=== PATIENT | female | born 1950 | race Caucasian/White ===

== ENCOUNTER 2016-10-09 08:35 | Outpatient (CLI) ==
[2016-10-09 13:16] LABS: ALBUMIN/GLOBULIN RATIO 1.03; ANION GAP 17.6; BILIRUBIN,TOTAL 0.49 mg/dL (0.00-1.20); BUN/CREATININE RATIO 11.53; CHOL/HDL RATIO 3.2 (4.5-5.5); CREATININE 0.78 mg/dL (0.60-1.30); POTASSIUM 4.6 mmol/L (3.5-5.10); TOTAL PROTEIN 7.9 g/dL (5.8-8.1)
[2016-10-09 14:15] LABS: BASOPHILS # (AUTO) 0.1 K/uL (0-0.2); BASOPHILS % (AUTO) 0.8 % (0.0-3.0); EOSINOPHILS # (AUTO) 0.2 K/ul (0.0-0.7); EOSINOPHILS % (AUTO) 3.7 % (0.0-7.0); HEMATOCRIT 41.5 % (37.0-47.0); HEMOGLOBIN 13.9 g/dl (12.0-16.0); IMMATURE GRANULOCYTE % (AUTO) 0.2 % (0.0-5.0); LYMPHOCYTES # (AUTO) 1.3 K/uL (0.60-3.4); LYMPHOCYTES % (AUTO) 21.5 (10.0-50.0); MEAN CORPUSCULAR HEMOGLOBIN 29.3 pg (27.0-31.0); MEAN CORPUSCULAR HGB CONC 33.5 (31.8-35.4); MEAN CORPUSCULAR VOLUME 87.6 fl (81.0-99.0); MONOCYTES # (AUTO) 0.5 K/uL (0.4-2.0); NEUTROPHILS # (AUTO) 4.1 K/ul (2.0-6.9); NEUTROPHILS % (AUTO) 65.8; PLATELET COUNT 307 10^3/uL (140-440); RED BLOOD COUNT 4.74 10^6/ul (4.20-5.40); WHITE BLOOD COUNT 6.24 K/ul (4.6-10.2)
== END 2016-10-09 08:36 | disposition home or self-care (01) ==
LOC: LAB 08:35
PROVIDERS: ATTEND Nurse Practitioner Family
DX: E11.9 Type 2 diabetes mellitus without complications (principal); I10 Essential (primary) hypertension; E03.9 Hypothyroidism, unspecified; E78.5 Hyperlipidemia, unspecified
CPT/HCPCS: 36415; 80053; 80061; 83036; 84443; 85025

== ENCOUNTER 2016-10-23 08:55 | Outpatient (CLI) | END 2016-10-23 08:56 | disposition home or self-care (01) | LOC: CAR 08:55 | PROVIDERS: ATTEND Nurse Practitioner Family | DX: R00.2 Palpitations (principal) | CPT/HCPCS: 93005; 93010 ==

== ENCOUNTER 2016-12-05 06:20 | Outpatient (CLI) ==
--- NOTE | 2016-12-06 09:45 | ECHO2D ---
Date of Exam: 12/05/16 Ordering Physician: RHC-Izabela ROLLE Reason for Echo: ABNORMAL EKG, SOB, PALPITATIONS M-Mode Normal Adult Results LV Dimensions Normal Adult Results AoV Opening excursions >1.6 >1.6 LVEDD-base- 3.5-5.8 4.4 Ao root dimensions 2.0-3.7 3.1 LVESD-base- 3.1-4.6 L. Atrium dimensions 1.9-3.8 3.5 Post. Wall thickness 0.8-1.1 1.2 IV septum (thickness) 0.7-1.2 1.2 Post. Wall excursion 0.72-1.3 NORMAL Septal motion NORMAL Systolic motion R. Ventricular cavity 1.5-2.0 NORMAL LVEF 60% 54% Paradoxical septal wall motion NORMAL 2-D : 2-D M Mode Echocardiogram was performed using apical four chamber and left parasternal long and short axis views. Mitral, tricuspid and aortic valves appear to be normal. Contractility of the left ventricle seems to be normal, so is the cavity size. Left atrial cavity size and aortic root appear to be normal. There is no pericardial effusion. There is no thrombus noted in the left ventricular or left aortic cavity. No mitral valve prolapse noted. M-MODE: MV: NORMAL AV: NORMAL TV: NORMAL PV: CHAMBER SIZE: NORMAL WALL MOTION: NORMAL PERICARDIUM: NORMAL INTERPRETATION: 1. LEFT VENTRICULAR HYPERTROPHY 2. NORMAL VALVES 3. NORMAL LEFT VENTRICULAR CONTRACTILITY MTDD
== END 2016-12-05 06:21 | disposition home or self-care (01) ==
LOC: CAR 06:20
PROVIDERS: ATTEND Internal Medicine
DX: R06.02 Shortness of breath (principal); R00.2 Palpitations; R94.31 Abnormal electrocardiogram [ECG] [EKG]

== ENCOUNTER 2016-12-06 06:27 | Outpatient (CLI) ==
[2016-12-06] MEDS ORDERED: DOBUTAMINE 250 ML IV ONE (07:05)
[2016-12-06] MEDS ORDERED: ATROPINE SULFATE PFS ONE (07:05)
--- NOTE | 2016-12-07 09:13 | ECHOSTRESS ---
Date of Exam: 12/06/16 [facility] Reason for Echo: PALPITATIONS, ABNORMAL EKG, SOB, DOBUTAMINE STRESS TEST--NO ISCHEMIA M-Mode Normal Adult Results LV Dimensions Normal Adult Results AoV Opening excursions >1.6 LVEDD-base- 3.5-5.8 Ao root dimensions 2.0-3.7 LVESD-base- 3.1-4.6 L. Atrium dimensions 1.9-3.8 Post. Wall thickness 0.8-1.1 IV septum (thickness) 0.7-1.2 Post. Wall excursion 0.72-1.3 Septal motion Systolic motion R. Ventricular cavity 1.5-2.0 LVEF 60% Paradoxical septal wall motion 2-D: NORMAL LEFT VENTRICULAR CONTRACTILITY--RESTING AND WITH DOBUTAMINE INFUSION M-MODE: MV: AV: TV: PV: CHAMBER SIZE: WALL MOTION: NORMAL LEFT VENTRICULAR CONTRACTILITY--RESTING AND WITH DOBUTAMINE INFUSION PERICARDIUM: INTERPRETATION: 1. NORMAL LEFT VENTRICULAR CONTRACTILITY--RESTING AND WITH DOBUTAMINE INFUSION MTDD
--- NOTE | 2016-12-07 09:29 | DOBSTECHO ---
Ordering Physician: MOOSE BONILLA Date of Test: 12/06/16 Reason for Examination: PALPITATIONS, ABNORMAL EKG, SOB Current Medications: DOXEPIN, LEVOTHYROXINE, PRAVASTATIN, LISINOPRIL, HTCZ, CLONIDINE, METOPROLOL Height: 70" Weight: 181 LBS Target Heart Rate: 131/155 ST Segment Stage Time HR BPM BP mmhg Rhythm +/- Up Down Comments/Symptoms Control Sitting 65 122/60 SR X NONE Dobutamine 250mg/D5W 5cmg/KG/mn 10cmg/KG/mn 3" 75 140/82 SR X NONE 15cmg/KG/mn 2" 75 138/90 SR X NONE 20cmg/KG/mn 2" 76 140/90 SR X NONE 25cmg/KG/mn 2" 82 SR X NONE 30cmg/KG/mn 2" 86 140/90 SR X NONE 35cmg/KG/mn 2" 111 162/92 SR X .25 ATROPINE GIVEN 40cmg/KG/mn 2:15 115 170/100 SR X NONE Time: 3" HR B/P Time: 7" HR B/P Time: 10" HR B/P Recovery 98 152/98 Recovery 85 140/82 Recovery 78 Total Time: 15:15 Maximum Heart Rate Reached: 115 Interpretation: 98% OXYGEN SATURATION WITH DOBUTAMINE ON ROOM AIR 1. NO EVIDENCE OF ISCHEMIA FROM HEART RATE 65/MINUTE TO 115/MINUTE 2. NO CHEST PAIN OR CHEST DISCOMFORT NORMAL LEFT VENTRICULAR CONTRACTILITY--RESTING AND WITH DOBUTAMINE INFUSION MTDD
== END 2016-12-06 06:28 | disposition home or self-care (01) ==
LOC: CAR 06:27
PROVIDERS: ATTEND Internal Medicine
DX: R06.02 Shortness of breath (principal); R00.2 Palpitations; R94.31 Abnormal electrocardiogram [ECG] [EKG]

== ENCOUNTER 2016-12-19 12:09 | Outpatient (CLI) ==
[2016-12-19 12:55] LABS: CREATININE 0.78 mg/dL (0.60-1.30)
--- NOTE | 2016-12-19 13:41 | US ---
EXAM: Bilateral carotid artery Doppler History: Dizziness. Technique: Multiple sonographic images through the bilateral internal carotid arteries were obtaine d. Color duplex Doppler was used to interrogate vascular flow. Findings: The right ICA peak systolic velocity is within normal limits measuring 0.7 meters per second. The r ight ICA/cca PSV ratio is normal at 1.0. The right vertebral artery is patent and demonstrates ante grade flow. The left ICA peak systolic velocity is within normal limits measuring 0.8 meters per second. The le ft ICA/cca PSV ratio is normal at 1.0. The left vertebral artery is patent and demonstrates antegra de flow. Sierra scale images demonstrate no significant plaque buildup. Impression: No significant hemodynamic stenosis of the bilateral internal carotid arteries.
== END 2016-12-19 12:10 | disposition home or self-care (01) ==
LOC: RAD 12:09
PROVIDERS: ATTEND Internal Medicine
DX: R42 Dizziness and giddiness (principal)
CPT/HCPCS: 36415; 82565

== ENCOUNTER 2016-12-20 11:49 | Outpatient (CLI) ==
--- NOTE | 2016-12-20 16:30 | MRI ---
EXAM: Brain MRI with and without intravenous contrast. HISTORY: Dizziness and near syncope. COMPARISON: None. TECHNIQUE: Multiplanar, multisequence MR images were acquired of the brain before and after adminis tration of intravenous contrast. FINDINGS: The midline structures are central and the craniocervical junction is unremarkable. The ventricles and sulci are normal in size and configuration. There are no abnormal extra-axial fluid collections. The brain parenchyma has no diffusion restriction to suggest acute hypoperfusion or infarction. The left cerebral hemisphere is slightly larger than the right which is a common normal variant and the re is a mildly prominent sulcus in the medial left occipital lobe. There are a few T2 hyperintensit ies in the supratentorial white matter consistent with minimal leukomalacia which is nonspecific. T here is no abnormal dark gradient echo signal. After administration of gadolinium, no enhancing les ions are identified. The corpus callosum is normal. The pituitary gland has a normal homogeneous co ntrast enhancement. The infundibulum is near midline. There are no intraorbital masses. There is a1 cm x 1.5 cm expansile cystic lesion in the posterior left ethmoid air cell consistent with a small mucocele. Minor mucosal thickening scattered in the r emaining ethmoid air cells and is present in the right sphenoid air cell. Middle ears and mastoids are clear. No abnormal contrast enhancement is present in the internal auditory canals or labyrinth ine structures. Flow voids are present in the major intracranial arteries and dural venous sinuses. IMPRESSION: 1. No intracranial mass, hemorrhage or acute cerebral infarct. 2. Minimal leukomalacia which is nonspecific.
== END 2016-12-20 11:50 | disposition home or self-care (01) ==
LOC: RAD 11:49
PROVIDERS: ATTEND Internal Medicine
DX: R42 Dizziness and giddiness (principal); R00.2 Palpitations; R55 Syncope and collapse

== ENCOUNTER 2016-12-26 08:49 | Outpatient (CLI) ==
--- NOTE | 2017-01-29 13:50 | CARDEVENT ---
SUMMARY OF EVENTS Date of Transmission 12/26/16 09 SINUS RHYTHM 12/26/16 0911 SINUS RHYTHM INTERPRETATIONS: 1. SIN[facility] RHYTHM, RATE 65/[facility]
== END 2016-12-26 08:50 | disposition home or self-care (01) ==
LOC: CAR 08:49
PROVIDERS: ATTEND Internal Medicine
DX: R00.2 Palpitations (principal); R55 Syncope and collapse

== ENCOUNTER 2017-01-08 10:21 | Outpatient (CLI) ==
[2017-01-08 14:06] LABS: ALBUMIN 3.8 g/dL (3.4-5.0); ALBUMIN/GLOBULIN RATIO 1.03; BILIRUBIN,TOTAL 0.62 mg/dL (0.00-1.20); BUN/CREATININE RATIO 13.88; CALCIUM 9.5 mg/dL (8.2-10.2); CREATININE 0.72 mg/dL (0.60-1.30); TOTAL PROTEIN 7.5 g/dL (5.8-8.1)
== END 2017-01-08 10:22 | disposition home or self-care (01) ==
LOC: LAB 10:21
PROVIDERS: ATTEND Nurse Practitioner Family
DX: E11.9 Type 2 diabetes mellitus without complications (principal); I10 Essential (primary) hypertension; E03.9 Hypothyroidism, unspecified; E78.5 Hyperlipidemia, unspecified; E55.9 Vitamin D deficiency, unspecified
CPT/HCPCS: 36415; 80053; 80061; 82306; 83036; 84443

== ENCOUNTER 2017-04-09 07:34 | Outpatient (CLI) ==
[2017-04-09 07:49] LABS: BASOPHILS % (AUTO) 0.4 % (0.0-3.0); EOSINOPHILS % (AUTO) 0.6 % (0.0-7.0); HEMATOCRIT 39.5 % (37.0-47.0); HEMOGLOBIN 14.1 g/dl (12.0-16.0); IMMATURE GRANULOCYTE % (AUTO) 0.1 % (0.0-5.0); LYMPHOCYTES # (AUTO) 1.3 K/uL (0.60-3.4); LYMPHOCYTES % (AUTO) 17.7 (10.0-50.0); MEAN CORPUSCULAR HEMOGLOBIN 29.6 pg (27.0-31.0); MEAN CORPUSCULAR HGB CONC 35.7 (31.8-35.4); MONOCYTES # (AUTO) 0.4 K/uL (0.4-2.0); MONOCYTES % (AUTO) 5.7 (0-10); NEUTROPHILS # (AUTO) 5.5 K/ul (2.0-6.9); NEUTROPHILS % (AUTO) 75.5; PLATELET COUNT 287 10^3/uL (140-440); RED BLOOD COUNT 4.76 10^6/ul (4.20-5.40); WHITE BLOOD COUNT 7.25 K/ul (4.6-10.2)
[2017-04-09 08:35] LABS: ALBUMIN 3.8 g/dL (3.4-5.0); ALBUMIN/GLOBULIN RATIO 0.86; ANION GAP 17.3; BILIRUBIN,TOTAL 0.44 mg/dL (0.00-1.20); BUN/CREATININE RATIO 17.1; CALCIUM 9.7 mg/dL (8.2-10.2); CHOL/HDL RATIO 3.6 (4.5-5.5); CREATININE 0.76 mg/dL (0.60-1.30); POTASSIUM 4.3 mmol/L (3.5-5.10); TOTAL PROTEIN 8.2 g/dL (5.8-8.1)
== END 2017-04-09 07:35 | disposition home or self-care (01) ==
LOC: LAB 07:34
PROVIDERS: ATTEND Nurse Practitioner Family
DX: E11.9 Type 2 diabetes mellitus without complications (principal); I10 Essential (primary) hypertension; E03.9 Hypothyroidism, unspecified; E78.5 Hyperlipidemia, unspecified
CPT/HCPCS: 36415; 80053; 80061; 83036; 84443; 85025

== ENCOUNTER 2017-07-06 13:56 | Outpatient (CLI) ==
[2017-07-06 15:43] LABS: ALBUMIN 3.7 g/dL (3.4-5.0); ALBUMIN/GLOBULIN RATIO 0.95; BILIRUBIN,TOTAL 0.44 mg/dL (0.00-1.20); BUN/CREATININE RATIO 15.49; CALCIUM 9.9 mg/dL (8.2-10.2); CREATININE 0.71 mg/dL (0.60-1.30); TOTAL PROTEIN 7.6 g/dL (5.8-8.1)
== END 2017-07-06 13:57 | disposition home or self-care (01) ==
LOC: LAB 13:56
PROVIDERS: ATTEND Nurse Practitioner Family
DX: E11.9 Type 2 diabetes mellitus without complications (principal); E03.9 Hypothyroidism, unspecified; E78.5 Hyperlipidemia, unspecified; I10 Essential (primary) hypertension
CPT/HCPCS: 36415; 80053; 80061; 83036; 84443

== ENCOUNTER 2017-10-09 12:38 | Outpatient (CLI) | END 2017-10-09 12:39 | disposition home or self-care (01) | LOC: LAB 12:38 | PROVIDERS: ATTEND Nurse Practitioner Family | DX: E11.9 Type 2 diabetes mellitus without complications (principal); I10 Essential (primary) hypertension; E78.5 Hyperlipidemia, unspecified; E03.9 Hypothyroidism, unspecified | CPT/HCPCS: 36415; 80053; 80061; 83036; 84443; 85025 ==

== ENCOUNTER 2018-01-07 13:28 | Outpatient (CLI) | END 2018-01-07 13:29 | disposition home or self-care (01) | LOC: RHC-LAB 13:28 | PROVIDERS: ATTEND Nurse Practitioner Family | DX: E78.5 Hyperlipidemia, unspecified (principal); I10 Essential (primary) hypertension; E03.9 Hypothyroidism, unspecified; E11.9 Type 2 diabetes mellitus without complications | CPT/HCPCS: 36415; 80053; 80061; 83036; 84443 ==

== ENCOUNTER 2018-04-15 09:27 | Outpatient (CLI) | END 2018-04-15 09:28 | disposition home or self-care (01) | LOC: RHC-LAB 09:27 | PROVIDERS: ATTEND Nurse Practitioner Family | DX: E11.9 Type 2 diabetes mellitus without complications (principal); E78.5 Hyperlipidemia, unspecified; I10 Essential (primary) hypertension | CPT/HCPCS: 36415; 80053; 80061; 83036 ==

== ENCOUNTER 2018-07-15 08:44 | Outpatient (CLI) | END 2018-07-15 08:45 | disposition home or self-care (01) | LOC: RHC-LAB 08:44 | PROVIDERS: ATTEND Nurse Practitioner Family | DX: E11.9 Type 2 diabetes mellitus without complications (principal); I10 Essential (primary) hypertension; E03.9 Hypothyroidism, unspecified; E78.5 Hyperlipidemia, unspecified | CPT/HCPCS: 36415; 80053; 80061; 83036; 84443; 85025 ==

== ENCOUNTER 2018-08-19 08:35 | Outpatient (CLI) ==
--- NOTE | 2018-08-19 09:37 | MAMMO ---
EXAM: Bilateral digital screening mammogram (2-D and 3-D) History: Screening Comparison: Bilateral mammogram 08/02/2017 Findings: MLO and CC views of bilateral breasts demonstrate scattered fibroglandular breast parenchy ma. CAD was reviewed by the radiologist. Tomosynthesis was performed. Stable benign bilateral [address] st calcifications. Biopsy clip again seen within the left breast. Impression: Benign stable mammogram. Recommend followup routine screening mammography in 1 year. BIRADS 2
== END 2018-08-19 08:36 | disposition home or self-care (01) ==
LOC: RAD 08:35
PROVIDERS: ATTEND Nurse Practitioner Family
DX: Z12.31 Encounter for screening mammogram for malignant neoplasm of breast (principal)